=== PATIENT | male | born 1945 | race Caucasian/White ===

== ENCOUNTER 2019-01-27 08:45 | Emergency (ER) | payer OTHER ==
[2019-01-27] MEDS ORDERED: Dexamethasone IV* 4 MG/ML 1 ML (4 MG) IM ONE (09:10)
[2019-01-27] MEDS ORDERED: Ketorolac INJ* 30 MG/ML 1 ML VIAL IM ONE (09:11)
[2019-01-27] MEDS ORDERED: oxyCODONE/Acetamin 5/325 MG* TAB PO ONE (09:11)
--- NOTE | 2019-01-27 09:11 | ED ---
Lower Extremity - HPI Summary HPI Summary: A 73 y/o male brought in by [facility] ambulance presents to [facility] with a chief complaint of left sided hip and leg pain since yesterday night. He reports that he was driving 4 hours yesterday. He reports that he felt fine this morning until he moved out of bed. He currently rates his pain as a 10/10 in severity, asking for pain medication. He claims that he was not given anything in the ambulance. He denies any back pain, fevers, chills, nausea, vomiting, swelling or redness to the hip. He denies a Hx of bloodclots or sciatica. He describes his pain as more of a nerve pain. He reports taking 200mg Celebrex last night and this morning. He reports that he cannot walk as standing aggravates his pain. - History of Current Complaint Chief Complaint: EDHipPelvisInjury Stated Complaint: LEFT LEG PAIN PER EMS Time Seen by Provider: 01/27/19 09:01 Hx Obtained From: Patient Mechanism Of Injury: Unknown Onset of Pain: Days, Prior to Arrival Onset/Duration: Days Severity Initially: Severe Severity Currently: Severe Pain Intensity: 10 Pain Scale Used: 0-10 Numeric Timing: Intermittent - 1 episode last night and 1 episode this morning Location: Is Discrete @ - left hip Character Of Pain: Unable To Describe - "nerve pain" Associated Signs And Symptoms: Negative: Swelling, Redness, Fever Aggravating Factor(s): Standing Alleviating Factor(s): Rest Able to Bear Weight: No - Allergies/Home Medications Allergies/Adverse Reactions: Allergies Allergy/AdvReac Type Severity Reaction Status Date / Time No Known Allergies Allergy Verified 01/27/19 09:10 Home Medications: Home Medications Atorvastatin* [Lipitor*] 20 mg PO DAILY 01/27/19 [History Confirmed 01/27/19] Terazosin CAP* [Hytrin CAP*] 4 mg PO BEDTIME 01/27/19 [History Confirmed ] Terazosin CAP* [Hytrin CAP*] 5 mg PO BEDTIME 01/27/19 [History Confirmed ] PMH/Surg Hx/FS Hx/Imm Hx Infectious Disease History: No Infectious Disease History: Denies: Traveled Outside the [place] in Last 30 Days - Social History Alcohol Use: Occasionally Substance Use Type: Reports: None Smoking Status (MU): Never Smoked Tobacco Review of Systems Negative: Fever, Chills Musculoskeletal: Other - Negative: back pain Positive: Other - Positive: left sided hip and leg pain. Negative: Edema Negative: Rash All Other Systems Reviewed And Are Negative: Yes Physical Exam - Summary Physical Exam Summary: GENERAL: Patient is a well-developed and nourished M who appears uncomfortable in the stretcher secondary to pain. Patient is not in any acute respiratory distress. HEAD AND FACE: Normocephalic EYES: PERRLA, EOMI x 2. EARS: Hearing grossly intact. MOUTH: Oropharynx within normal limits. NECK: Supple, trachea is midline, no adenopathy, no JVD, no carotid bruit. CHEST: Symmetric, no tenderness at palpation LUNGS: Clear to auscultation bilaterally. No wheezing or crackles. CVS: Regular rate and rhythm, S1 and S2 present, no murmurs or gallops appreciated. ABDOMEN: Soft, non-tender. Bowel sounds are normal. No abdominal abnormal pulsations. EXTREMITIES: Unable to reproduce pain or notice any redness swelling or warmth, Radiates down lateral thigh, pain on lateral aspect, Full ROM in all major joints, no edema, no cyanosis or clubbing. NEURO: Alert and oriented x 3. No acute neurological deficits. Speech is normal and follows commands. SKIN: Dry and warm Triage Information Reviewed: Yes Vital Signs On Initial Exam: Initial Vitals Temp Pulse Resp BP Pulse Ox 97.3 F 67 19 138/69 99 01/27/19 08:54 01/27/19 08:54 01/27/19 08:54 01/27/19 08:54 01/27/19 08:54 Vital Signs Reviewed: Yes Diagnostics - Vital Signs Vital Signs Temp Pulse Resp BP Pulse Ox 01/27/19 08:54 97.3 F 67 19 138/69 99 - Laboratory Lab Statement: Any lab studies that have been ordered have been reviewed, and results considered in the medical decision making process. - Radiology hip/pelvis x-ray Radiology Interpretation Completed By: Radiologist Summary of Radiographic Findings: OSTEOARTHRITIS. NO ACUTE OSSEOUS INJURY. IF SYMPTOMS PERSIST, RECOMMEND REPEAT IMAGING. ED physician has reviewed this imaging report. - Ultrasound No standard instances Ultrasound Interpretation Completed By: Radiologist Summary of Ultrasound Findings: VL LOWER EXT VEINS LEFT IMPRESSION: NO EVIDENCE FOR DEEP VENOUS THROMBOSIS. ED physician has reviewed this imaging report. Re-Evaluation - Re-Evaluation First Eval Re-Evaluation Time: 11:09 Change: Improved Comment: After Dilaudid pain went from 10+ to 8 Second Eval Re-Evaluation Time: 12:34 Change: Improved Comment: Reports he is feeling better. Patient is ready for discharge, requesting anti inflammatory. Lower Extremity Course/Dx - Course Course Of Treatment: A 73 y/o male brought in by [facility] ambulance presents to [facility] with a chief complaint of left sided hip and leg pain since yesterday night. The physical exam revealed that the patient appeared uncomfortable secondary to pain and pain that radiates down lateral thigh, pain on lateral aspect, unable to reproduce pain or notice any redness swelling or warmth. VL LOWER EXT VEINS LEFT IMPRESSION: NO EVIDENCE FOR DEEP VENOUS THROMBOSIS. ED physician has reviewed this imaging report. In the ED course the patient was given Dilaudid IV, Toradol IV, Zofran IV and Percocet PO. The patient will be discharged with a prescription for Percocet and Naproxen. I discussed results with patient and he reports feeling better. He is hemodynamically stable and safe for discharge. Strict return precautions given and he will otherwise follow up with his PCP. - Diagnoses Provider Diagnoses: Meralgia paraesthetica Discharge - Sign-Out/Discharge Documenting (check all that apply): Patient Departure - DC Patient Received Moderate/Deep Sedation with Procedure: No - Discharge Plan Condition: Stable Disposition: HOME Prescriptions: Naproxen [Naproxen 500 mg tab] 500 mg PO BID PRN #20 tablet.dr PRN Reason: Pain oxyCODONE/Acetamin 5/325 MG* [Percocet 5/325 TAB*] 1 tab PO Q6H PRN #4 tab MDD 4 PRN Reason: Pain Referrals: [facility] [facility] [Outside] (1-3 days) Additional Instructions: RETURN TO THE EMERGENCY DEPARTMENT FOR CHANGING OR WORSENING SYMPTOMS. - Billing Disposition and Condition Condition: STABLE Disposition: Home - Attestation Statements Document Initiated by Scribe: Yes Documenting Scribe: Florin Singh Provider For Whom Scribe is Documenting (Include Credential): Ирина Bay MD Scribe Attestation: Florin Nguyen, scribed for Ирина Bay MD on 01/28/19 at 0842. Scribe Documentation Reviewed: Yes Provider Attestation: The documentation as recorded by the scribe, Florin Singh accurately reflects the service I personally performed and the decisions made by me, Anais Bay MD Status of Scribe Document: Viewed
[2019-01-27] MEDS ORDERED: HYDROmorphone INJ* 0.5 MG/0.5 ML SYRINGE IV ONE (10:25)
[2019-01-27] MEDS ORDERED: Ondansetron INJ* 2 MG/ML VIAL IV ONE (10:27)
[2019-01-27] MEDS ORDERED: Ondansetron INJ* 2 MG/ML VIAL ONE (10:28)
[2019-01-27] MEDS ORDERED: HYDROmorphone INJ* 0.5 MG/0.5 ML SYRINGE ONE (10:28)
[2019-01-27] MEDS ORDERED: HYDROmorphone INJ* 0.5 MG/0.5 ML SYRINGE IV SLOW PU PRN (12:32)
[2019-01-27 12:42] VITALS: BP 141/76
== END 2019-01-27 13:03 | disposition home or self-care (01) ==
LOC: ED 08:45
DX: G57.12 Meralgia paresthetica, left lower limb (principal); M79.605 Pain in left leg; M16.12 Unilateral primary osteoarthritis, left hip
CPT/HCPCS: 96372; 96374; 96375; 99283; A9270-GY; J1100; J1170; J1885; J2405